=== PATIENT | female | born 1945 | race Asian ===

== ENCOUNTER 2018-07-23 07:29 | Emergency (ER) | payer OTHER ==
[2018-07-23] MEDS ORDERED: ACETAMINOPHEN 500 MG TAB ONE (08:09)
[2018-07-23] MEDS ORDERED: IBUPROFEN 400 MG TAB ONE (08:09)
--- NOTE | 2018-07-23 08:26 | EDPHYS ---
Physician Documentation [facility] Name: Marty Schneider Age: 73 yrs Sex: Female : 1945 Arrival Date: 07/23/2018 Time: 07:33 Bed 20 Private MD: Ryder Osman ED Physician Jj Hutchison HPI: 07/23 08:08 This 73 yrs old Female presents to ER via Wheelchair with complaints of Feet wa Swelling. 08:08 The patient presents with pain, that is acute. The complaints affect the right foot, wa bottom of right foot. Context: denies injury. states bottom of foot hurts to walk. . Onset: The symptoms/episode began/occurred 3 day(s) ago. Modifying factors: The symptoms are alleviated by nothing, the symptoms are aggravated by weight bearing. Associated signs and symptoms: The patient has no apparent associated signs or symptoms. Severity of symptoms: At their worst the symptoms were moderate, in the emergency department the symptoms are unchanged. The patient has experienced similar episodes in the past, h/o gout. states thus pain is different, however. The patient has not recently seen a physician. Historical: - Allergies: 08:01 Allopurinol; iw - Home Meds: 08:01 Azasite 1 % ophthalmic drop 1 drop once daily [Active]; atorvastatin 40 mg oral tab 1 iw tab once daily [Active]; Bactroban 2 % Topical oint 3 times per day [Active]; celecoxib 200 mg Oral cap 1 cap once daily [Active]; desoximetasone 0.25 % Topical oint three times a day [Active]; lisinopril 5 mg Oral tab 1 tab once daily [Active]; metformin 500 mg Oral tr24 1 tab once daily [Active]; metoprolol tartrate 25 mg Oral tab 1 tab once daily [Active]; omeprazole 20 mg Oral cpDR 1 cap once daily [Active]; optivar, 1 drop each eye twice daily PRN [Active]; Restasis 0.05 % ophthalmic dpet 1 drop every 12 hours [Active]; vitamin B complex oral cap daily [Active]; aspirin 81 mg Oral TbEC 1 tab once daily [Active]; Geritol Complete 16 mg iron- 0.38 mg oral tab daily [Active]; - PMHx: 08:01 Diabetes - NIDDM; High Cholesterol; Hypertension; iw - PSHx: 08:01 foot surgery; iw - Immunization history:: Adult Immunizations not up to date. - Social history:: Smoking status: Patient/guardian denies using tobacco. - Ebola Screening: : Patient negative for fever greater than or equal to 101.5 degrees Fahrenheit, and additional compatible Ebola Virus Disease symptoms Patient denies exposure to infectious person Patient denies travel to an Ebola-affected area in the 21 days before illness onset No symptoms or risks identified at this time. - Family history:: not pertinent. - Hospitalizations: : No recent hospitalization is reported. ROS: 08:19 MS/extremity: Positive for pain, tenderness, of the bottom of R foot., Negative for wa abrasion, contusion, deformity. 08:19 Constitutional: Negative for fever, chills, and weight loss, Eyes: Negative for injury, pain, redness, and discharge, ENT: Negative for injury, pain, and discharge, Neck: Negative for injury, pain, and swelling, Cardiovascular: Negative for chest pain, palpitations, and edema, Respiratory: Negative for shortness of breath, cough, wheezing, and pleuritic chest pain, Abdomen/GI: Negative for abdominal pain, nausea, vomiting, diarrhea, and constipation, Back: Negative for injury and pain, : Negative for injury, bleeding, discharge, and swelling, Skin: Negative for injury, rash, and discoloration, Neuro: Negative for headache, weakness, numbness, tingling, and seizure, Psych: Negative for depression, anxiety, suicide ideation, homicidal ideation, and hallucinations. 08:19 MS/extremity: Positive for pain, tenderness, of the plantar R foot. 08:19 All other systems are negative. Exam: 08:21 Constitutional: This is a well developed, well nourished patient who is awake, alert, wa and in no acute distress. Head/Face: Normocephalic, atraumatic. Eyes: Pupils equal round and reactive to light, extra-ocular motions intact. Lids and lashes normal. Conjunctiva and sclera are non-icteric and not injected. Cornea within normal limits. Periorbital areas with no swelling, redness, or edema. ENT: Nares patent. No nasal discharge, no septal abnormalities noted. Tympanic membranes are normal and external auditory canals are clear. Oropharynx with no redness, swelling, or masses, exudates, or evidence of obstruction, uvula midline. Mucous membranes moist. Neck: Trachea midline, no thyromegaly or masses palpated, and no cervical lymphadenopathy. Supple, full range of motion without nuchal rigidity, or vertebral point tenderness. No Meningismus. Cardiovascular: Regular rate and rhythm with a normal S1 and S2. No gallops, murmurs, or rubs. Normal PMI, no JVD. No pulse deficits. Respiratory: Lungs have equal breath sounds bilaterally, clear to auscultation and percussion. No rales, rhonchi or wheezes noted. No increased work of breathing, no retractions or nasal flaring. Abdomen/GI: Soft, non-tender, with normal bowel sounds. No distension or tympany. No guarding or rebound. No evidence of tenderness throughout. Back: No spinal tenderness. No costovertebral tenderness. Full range of motion. Skin: Warm, dry with normal turgor. Normal color with no rashes, no lesions, and no evidence of cellulitis. Neuro: Awake and alert, GCS 15, oriented to person, place, time, and situation. Cranial nerves II-XII grossly intact. Motor strength 5/5 in all extremities. Sensory grossly intact. Cerebellar exam normal. Normal gait. Psych: Awake, alert, with orientation to person, place and time. Behavior, mood, and affect are within normal limits. 08:21 Musculoskeletal/extremity: Extremities: grossly normal except: noted in the right foot: pain, tenderness, tenderness, tenderness to the plantar fascia. no increased warmth, no redness or swelling.. Vital Signs: 08:01 BP 154 / 75; Pulse 75; Resp 16 S; Temp 97.5(TE); Pulse Ox 99% on R/A; Weight 62.6 kg; iw Height 4 ft. 8 in. (142.24 cm); Pain 9/10; 08:01 Body Mass Index 30.94 (62.60 kg, 142.24 cm) iw MDM: 07:39 Patient medically screened. wa 08:24 Differential diagnosis: noted concern for plantar fasciitis. will d/c home with meds. wa will advise exercises and close f/u. Data reviewed: vital signs, nurses notes. Response to treatment: the patient's symptoms have mildly improved after treatment. Administered Medications: 08:00 Drug: Tylenol 1000 mg Route: PO; bp 08:46 Follow up: Response: Pain is decreased bp 08:00 Drug: Motrin 400 mg Route: PO; bp 08:47 Follow up: Response: Pain is decreased bp Disposition: 07/23/18 08:26 Discharged to Home. Impression: Acute R plantar fasciitis. - Condition is Stable. - Discharge Instructions: Plantar Fasciitis. - Prescriptions for Prednisone 20 mg Oral Tablet - take 2 tablets by ORAL route once daily for 3 days; 6 tablet. - Medication Reconciliation Form, Thank You Letter, Antibiotic Education, Prescription Opioid Use form. - Follow up: Neftali Ca MD; When: 2 - 3 days; Reason: Recheck today's complaints. - Problem is new. - Symptoms have improved. - Notes: take ibuprofen and tylenol for pain as discussed. do the stretching exercises as discussed to help witht he pain and improve symptoms. follow up with the bone doctor as prescribed Signatures: Sonia Cruz RN RN Jj Hutchison MD MD wa Peltier, Brian, RN RN bp Corrections: (The following items were deleted from the chart) 08:48 08:26 07/23/2018 08:26 Discharged to Home. Impression: Acute R plantar fasciitis. bp Condition is Stable. Forms are Medication Reconciliation Form, Thank You Letter, Antibiotic Education, Prescription Opioid Use. Follow up: Neftali Ca; When: 2 - 3 days; Reason: Recheck today's complaints. Problem is new. Symptoms have improved. [email or web address]
--- NOTE | 2018-07-23 08:26 | ER ---
Nurse's Notes [facility] Name: Marty Masters Age: 73 yrs Sex: Female : 1945 Arrival Date: 07/23/2018 Time: 07:33 Bed 20 Private MD: Ryder Osman Diagnosis: Acute R plantar fasciitis Presentation: 07/23 07:46 Presenting complaint:. iw 07:51 Presenting complaint: Patient states: hx of gout, pain to right ankle since Sunday. iw Transition of care: patient was not received from another setting of care. Onset of symptoms was July 21, 2018. Risk Assessment: Do you want to hurt yourself or someone else? Patient reports no desire to harm self or others. Initial Sepsis Screen: Does the patient meet any 2 criteria? No. Patient's initial sepsis screen is negative. Does the patient have a suspected source of infection? No. Patient's initial sepsis screen is negative. Care prior to arrival: None. 07:51 Method Of Arrival: Wheelchair iw 07:51 Acuity: ANEUDY 4 iw Historical: - Allergies: 08: Allopurinol; iw - Home Meds: 08: Azasite 1 % ophthalmic drop 1 drop once daily [Active]; atorvastatin 40 mg oral tab 1 iw tab once daily [Active]; Bactroban 2 % Topical oint 3 times per day [Active]; celecoxib 200 mg Oral cap 1 cap once daily [Active]; desoximetasone 0.25 % Topical oint three times a day [Active]; lisinopril 5 mg Oral tab 1 tab once daily [Active]; metformin 500 mg Oral tr24 1 tab once daily [Active]; metoprolol tartrate 25 mg Oral tab 1 tab once daily [Active]; omeprazole 20 mg Oral cpDR 1 cap once daily [Active]; optivar, 1 drop each eye twice daily PRN [Active]; Restasis 0.05 % ophthalmic dpet 1 drop every 12 hours [Active]; vitamin B complex oral cap daily [Active]; aspirin 81 mg Oral TbEC 1 tab once daily [Active]; Geritol Complete 16 mg iron- 0.38 mg oral tab daily [Active]; - PMHx: 08:01 Diabetes - NIDDM; High Cholesterol; Hypertension; iw - PSHx: 08:01 foot surgery; iw - Immunization history:: Adult Immunizations not up to date. - Social history:: Smoking status: Patient/guardian denies using tobacco. - Ebola Screening: : Patient negative for fever greater than or equal to 101.5 degrees Fahrenheit, and additional compatible Ebola Virus Disease symptoms Patient denies exposure to infectious person Patient denies travel to an Ebola-affected area in the 21 days before illness onset No symptoms or risks identified at this time. - Family history:: not pertinent. - Hospitalizations: : No recent hospitalization is reported. Screenin:00 Abuse screen: Denies threats or abuse. Denies injuries from another. Nutritional bp screening: No deficits noted. Tuberculosis screening: No symptoms or risk factors identified. Fall Risk None identified. Assessment: 08:00 General: Appears in no apparent distress. uncomfortable, obese, Behavior is calm, bp cooperative, appropriate for age. Pain: Complains of pain in right foot. Neuro: Level of Consciousness is awake, alert, obeys commands, Oriented to person, place, time, situation, Appropriate for age. Cardiovascular: No deficits noted. Respiratory: Airway is patent Respiratory effort is even, unlabored, Respiratory pattern is regular, symmetrical. GI: No signs and/or symptoms were reported involving the gastrointestinal system. : No signs and/or symptoms were reported regarding the genitourinary system. EENT: No deficits noted. Derm: No deficits noted. Musculoskeletal: Circulation, motion, and sensation intact. Range of motion: intact in all extremities, PAIN WITH RIGHT PLANTAR EXTENSION. 08:47 Reassessment: PT D/C HOME VIA W/C WITH FAMILY, DX WITH PLANTAR FASCIITIS. bp Vital Signs: 08:01 BP 154 / 75; Pulse 75; Resp 16 S; Temp 97.5(TE); Pulse Ox 99% on R/A; Weight 62.6 kg; iw Height 4 ft. 8 in. (142.24 cm); Pain 9/10; 08:01 Body Mass Index 30.94 (62.60 kg, 142.24 cm) iw ED Course: 07:33 Patient arrived in ED. mr 07:33 Ryder Osman DO is Private Physician. mr 07:39 Jj Hutchison MD is Attending Physician. wa 07:53 Triage completed. iw 07:56 Michelle Redding RN is Primary Nurse. jb1 08:00 Patient has correct armband on for positive identification. Bed in low position. Call bp light in reach. Side rails up X2. Adult w/ patient. 08:01 Arm band placed on. iw 08:25 Neftali Ca MD is Referral Physician. 08:47 No provider procedures requiring assistance completed. Patient did not have IV access bp during this emergency room visit. Administered Medications: 08:00 Drug: Tylenol 1000 mg Route: PO; bp 08:46 Follow up: Response: Pain is decreased bp 08:00 Drug: Motrin 400 mg Route: PO; bp 08:47 Follow up: Response: Pain is decreased bp Outcome: 08:26 Discharge ordered by . wa 08:47 Discharged to home via wheelchair, with family. bp 08:47 Condition: stable 08:47 Discharge instructions given to patient, Instructed on discharge instructions, follow up and referral plans. medication usage, Demonstrated understanding of instructions, follow-up care, medications, Prescriptions given X 1. 08:48 Patient left the ED. bp Signatures: Lang Rehman jb1 Alejandra Garza mr Sonia Cruz, JEREMIAS RN Jj Hutchison MD MD wa Peltier, Brian, RN RN bp
== END 2018-07-23 08:48 | disposition home or self-care (01) ==
LOC: ER 07:29
DX: M72.2 Plantar fascial fibromatosis (principal); I10 Essential (primary) hypertension; E78.00 Pure hypercholesterolemia, unspecified; E11.9 Type 2 diabetes mellitus without complications; Z79.82 Long term (current) use of aspirin; Z88.8 Allergy status to other drugs, medicaments and biological substances
CPT/HCPCS: 99283

== ENCOUNTER 2019-08-10 10:37 | Emergency (ER) | payer OTHER ==
--- OUTSIDE RECORDS SUMMARY | 2019-08-10 10:40 | XMS REPORT ---
:1945 Author Organization eClinicalWorks Care Team Providers Name Role Phone Jay Ousmane Provider Role Unavailable Allergies, Adverse Reactions, Alerts Substance Reaction Event Type Allopurinol Info Not Available Drug Allergy Problems Problem Type Condition Code Onset Dates Condition Status Problem Other technician terminal and repeater (current) drug Z79.899 Active therapy Problem Dry eye syndrome of bilateral H04.123 Active lacrimal glands Problem Encounter for other general Z00.8 Active examination Assessment Pain, joint, shoulder, right M25.511 Active Assessment Tear of right rotator cuff, M75.101 Active unspecified tear extent Problem Primary osteoarthritis involving 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 Problem Skin lesion of right arm L98.9 Active Problem 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 Active Problem Tear of right rotator cuff, M75.101 Active unspecified tear extent Problem Essential hypertension I10 Active Problem Mixed hyperlipidemia E78.2 Active Problem 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 Problem Skin lesion of left arm L98.9 Active Medications Medication Code Code Instructions Start End Status Dosage System Date Date Geritol Complete [facility] 30007201971 - Orally Sep 10, Active not defined 2017 Aspirin 81 [facility] 83255734637 81 MG Orally Sep 10, Active 1 tablet Once a day 2017 Lisinopril [facility] 24042714690 5 MG Orally Sep 10, Active 1 tablet Once a day 2017 Atorvastatin [facility] 55314388434 40 MG Orally b , Active 1 tablet Calcium Once a day 2018 AzaSite [facility] 69967224902 1 % Ophthalmic Sep 10, Active 1 drop into Once a day 2018 affected eye B-Complex/B-12 [facility] 47249460416 - Sublingual Sep 10, Active not defined 2017 Restasis ND 32660584049 0.05 % Sep 10, Active 1 drop into Ophthalmic 2018 affected eye Twice a day MetFORMIN HCl ER ND 88968654140 500 MG Orally Sep 10, Active 1 tablet with Once a day 2018 evening meal Omeprazole [facility] 84379501341 20 MG Orally b , Active 1 tablet Once a day 2017 Optivar ND 0 Active not defined Metoprolol [facility] 46225363609 50 MG Orally Sep 10, Active 1/2 tablet Tartrate Twice a day 2017 Desoximetasone [facility] 13062490239 0.25 % Sep 10, Active 1 application Externally TID 2017 to affected prn area Results No Known Results Summary Purpose eClinicalWorks Submission
--- OUTSIDE RECORDS SUMMARY | 2019-08-10 10:40 | XMS REPORT ---
:1945 Author Organization [employer] Care Team Providers Name Role Phone Ousmane Thompson Provider Role Unavailable Allergies, Adverse Reactions, Alerts Substance Reaction Event Type Allopurinol Info Not Available Drug Allergy Problems Problem Type Condition Code Onset Dates Condition Status Problem Other terminologist (current) drug Z79.899 Active therapy Problem Dry [...] Start End Status Dosage System Date Date Omeprazole ND 63560649711 20 MG Orally Sep 10, Active 1 tablet Once a day 2017 MetFORMIN HCl ND 30380220332 500 MG Orally Sep 10, Active 1 tablet with ER Once a day 2018 evening meal Optivar NDC 0 Active not defined Tramadol HCl ND 12116947364 50 MG Orally December 05, Active 1 tablet as every 6 hrs 2019 needed AzaSite ND 75746752537 1 % Ophthalmic Sep 10, Active 1 drop into Once a day 2018 affected eye Restasis ND 73190953573 0.05 % Sep 10, Active 1 drop into Ophthalmic 2018 affected eye Twice a day Lisinopril ND 66761273120 5 MG Orally Sep 10, Active 1 tablet Once a day 2018 Atorvastatin ND 01775532950 40 MG Orally Sep 10, Active 1 tablet Calcium Once a day 2018 Bactroban ND 46432432784 2 % Externally Active 1 application Three times a to affected day area Celecoxib ND 28953904331 200 MG Orally Active 1 capsule Once a day with food Colcrys [facility] 28788500756 0.6 MG Orally Aug Active 1 tablet Once a day 2018 Aspirin 81 [facility] 50123262277 81 MG Orally Sep 10, Active 1 tablet Once a day 2017 B-Complex/B-12 [facility] 34629650260 - Sublingual Sep 10, Active not defined 2017 Metoprolol [facility] 25224484328 50 MG Orally Sep 10, Active 1/2 tablet Tartrate Twice a day 2017 Geritol [facility] 03558594787 - Orally Sep 10, Active not defined Complete 2018 Results No Known Results Summary Purpose eClinicalWorks Submission
--- OUTSIDE RECORDS SUMMARY | 2019-08-10 10:40 | XMS REPORT ---
:1945 Author Organization [employer] Care Team Providers Name Role Phone Ousmane Thompson Provider Role Unavailable Allergies, Adverse Reactions, Alerts Substance Reaction Event Type Allopurinol Info Not Available Drug Allergy Problems Problem Type Condition Code Onset Dates Condition Status Assessment Pain, joint, shoulder, right M25.511 Active Problem Primary osteoarthritis involving 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 Assessment Tear of right rotator cuff, M75.101 Active unspecified tear extent Problem Type 2 diabetes mellitus without E11.9 Active complication, without long-term current use of insulin Problem Essential hypertension I10 Active Problem Tear of right rotator cuff, M75.101 Active unspecified tear extent Problem Encounter for other general Z00.8 Active examination Problem Other residential (current) drug Z79.899 Active therapy Problem Mixed hyperlipidemia E78.2 Active Problem Dry eye syndrome of bilateral H04.123 Active lacrimal glands Medications Medication Code Code Instructions Start End Status Dosage System Date Date Bactroban [facility] 83395832036 2 % topically Sep 10Aug Active 1 application as directed 2017, to affected 2019 area Atorvastatin ND 02900558643 40 MG Orally Sep 10, Active 1 tablet Calcium Once a day 2017 Optivar NDC 0 Active not defined Omeprazole ND 54915278376 20 MG Orally Sep 10, Active 1 tablet Once a day 2017 AzaSite ND 16937820880 1 % Ophthalmic Sep 10, Active 1 drop into Once a day 2018 affected eye Geritol Complete ND 76007307613 - Orally Sep 10, Active not defined 2018 Aspirin 81 ND 60135317663 81 MG Orally Sep 10, Active 1 tablet Once a day 2017 Lisinopril ND 27112473623 5 MG Orally b , Active 1 tablet Once a day 2018 MetFORMIN HCl ER ND 01464897433 500 MG Orally b , Active 1 tablet with Once a day 2018 evening meal Celecoxib ND 02887217447 200 MG Orally Sep 10, Aug Active 1 capsule Once a day 2017, with food 2018 Desoximetasone ND 22538416814 0.25 % Sep 10, Active 1 application Externally TID 2017 to affected prn area Metoprolol [facility] 35669527776 50 MG Orally Sep 10, Active 1/2 tablet Tartrate Twice a day 2017 Restasis ND 51752733907 0.05 % Sep 10, Active 1 drop into Ophthalmic 2018 affected eye Twice a day B-Complex/B-12 [facility] 71564378522 - Sublingual Sep 10, Active not defined 2017 Results Name Result Date Reference Range Unit Abnormality Flag MRI : Shoulder, right Summary Purpose eClinicalWorks Submission
--- OUTSIDE RECORDS SUMMARY | 2019-08-10 10:40 | XMS REPORT ---
:1945 Author Organization [employer]Works Care Team Providers Name Role Phone Jay Ousmane Provider Role Unavailable Allergies No Known Allergies Problems Problem Type Condition Code Onset Dates Condition Status Problem Primary osteoarthritis involving 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 Problem Type 2 diabetes mellitus without E11.9 Active complication, without long-term current use of insulin Problem Essential hypertension I10 Active Problem Tear of right rotator cuff, M75.101 Active unspecified tear extent Problem Encounter for other general Z00.8 Active examination Problem Other half-way (current) drug Z79.899 Active therapy Problem Mixed hyperlipidemia E78.2 Active Problem Dry eye syndrome of bilateral H04.123 Active lacrimal glands Medications No Known Medications Results No Known Results Summary Purpose eClinicalWorks Submission
--- OUTSIDE RECORDS SUMMARY | 2019-08-10 10:40 | XMS REPORT ---
:1945 Author Organization [employer] Care Team Providers Name Role Phone Ousmane Thompson Provider Role Unavailable Allergies No Known Allergies [...] other general Z00.8 Active examination Problem Other mcfp (current) drug Z79.899 Active therapy Problem Mixed hyperlipidemia E78.2 Active Problem Dry eye syndrome of bilateral H04.123 Active lacrimal glands Medications No Known Medications Results No Known Results Summary Purpose eClinicalWorks Submission
--- OUTSIDE RECORDS SUMMARY | 2019-08-10 10:40 | XMS REPORT ---
:1945 Author Organization [employer] Care Team Providers Name Role Phone Ousmane Thompson Provider Role Unavailable Allergies No Known Allergies Problems Problem Type Condition Code Onset Dates Condition Status Problem Other remote computer terminal operator (current) drug Z79.899 Active therapy Problem Dry eye syndrome of bilateral H04.123 Active lacrimal glands Problem Encounter for other general Z00.8 Active examination Problem Primary osteoarthritis involving M15.0 Active multiple [...] lesion of left arm L98.9 Active Medications No Known Medications Results No Known Results Summary Purpose eClinicalWorks Submission
--- OUTSIDE RECORDS SUMMARY | 2019-08-10 10:40 | XMS REPORT ---
:1945 Author Organization eClinicalWorks Care Team Providers Name Role Phone ThompsonOusmane Provider Role Unavailable Allergies, Adverse Reactions, Alerts Substance Reaction Event Type Allopurinol Info Not Available Drug Allergy Problems Problem Type Condition Code Onset Dates Condition Status Assessment Pain, joint, foot, right M25.571 Active Problem Primary osteoarthritis involving 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 Assessment Plantar fasciitis of right foot M72.2 Active Assessment Achilles tendinitis of right lower M76.61 Active extremity Problem Type 2 diabetes mellitus without E11.9 Active complication, without long-term current use of insulin Problem Essential hypertension I10 Active Problem Tear of right rotator cuff, M75.101 Active unspecified tear extent Problem Encounter for other general Z00.8 Active examination Problem Other claim benefit specialist (current) drug Z79.899 Active therapy Problem Mixed hyperlipidemia E78.2 Active Problem Dry eye syndrome of bilateral H04.123 Active lacrimal glands Medications Medication Code Code Instructions Start End Status Dosage System Date Date / [facility] 24250828506 - Sublingual Sep 10, Active not defined 2017 Metoprolol ND 92583872175 50 MG Orally Sep 10, Active 1/2 tablet Tartrate Twice a day 2017 Atorvastatin ND 58748114420 40 MG Orally Sep 10, Active 1 tablet Calcium Once a day 2017 Geritol Complete ND 25204313730 - Orally Sep 10, Active not defined 2017 Omeprazole ND 18335410495 20 MG Orally Sep 10, Active 1 tablet Once a day 2017 AzaSite ND 44239004814 1 % Ophthalmic Sep 10, Active 1 drop into Once a day 2017 affected eye Restasis ND 12470072470 0.05 % Sep 10, Active 1 drop into Ophthalmic 2018 affected eye Twice a day Bactroban ND 27622528441 2 % topically Sep 10Aug Active 1 application as directed 2017, to affected 2019 area Celecoxib ND 79978082499 200 MG Orally Sep 10, Aug Active 1 capsule Once a day 2017, with food 2018 Aspirin 81 [facility] 96568770677 81 MG Orally Sep 10, Active 1 tablet Once a day 2017 Lisinopril [facility] 41138498826 5 MG Orally Sep 10, Active 1 tablet Once a day 2017 Optivar NDC 0 Active not defined MetFORMIN HCl ER [facility] 55582221952 500 MG Orally Sep 10, Active 1 tablet with Once a day 2017 evening meal Desoximetasone [facility] 17811624470 0.25 % Sep 10, Active 1 application Externally TID 2017 to affected prn area Results No Known Results Summary Purpose eClinicalWorks Submission
--- OUTSIDE RECORDS SUMMARY | 2019-08-10 10:40 | XMS REPORT ---
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 Active Problem Tear of right rotator cuff, M75.101 Active unspecified tear extent Problem Essential hypertension I10 Active Problem Mixed hyperlipidemia E78.2 Active Problem 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 Problem Skin lesion of left arm L98.9 Active Assessment Other long-term (current) drug Z79.899 Active therapy Assessment Essential hypertension I10 Active Assessment 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 Active Assessment Encounter for other general Z00.8 Active examination Assessment 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 Problem Primary osteoarthritis involving 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 Medications Medication Code Code Instructions Start End Status Dosage System Date Date Metoprolol [facility] 42485666091 50 MG Orally Sep 10, Active 1/2 tablet Tartrate Twice a day 2017 Restasis [facility] 76902131391 0.05 % Sep 10, Active 1 drop into Ophthalmic 2018 affected eye Twice a day Lisinopril [facility] 01313952082 5 MG Orally Sep 10, Active 1 tablet Once a day 2018 Geritol Complete ND 63125436487 - Orally Sep 10, Active not defined 2018 Celecoxib ND 75631919681 200 MG Orally Active 1 capsule Once a day with food MetFORMIN HCl ER ND 97846846205 500 MG Orally Sep 10, Active 1 tablet with Once a day 2018 evening meal AzaSite ND 97508310236 1 % Ophthalmic Sep 10, Active 1 drop into Once a day 2018 affected eye B-Complex/B-12 [facility] 70299383400 - Sublingual Sep 10, Active not defined 2017 Atorvastatin [facility] 55599885476 40 MG Orally Sep 10, Active 1 tablet Calcium Once a day 2017 Aspirin 81 [facility] 98238304506 81 MG Orally Sep 10, Active 1 tablet Once a day 2017 Desoximetasone [facility] 16346686597 0.25 % Sep 10November Active 1 application Externally TID 2018 03, to affected prn 2018 area Optivar NDC 0 Active not defined Omeprazole [facility] 01751294436 20 MG Orally Sep 10, Active 1 tablet Once a day 2017 Bactroban [facility] 80375723009 2 % Externally Active 1 application Three times a to affected day area Colcrys [facility] 91818821372 0.6 MG Orally Mar 11, Active 1 tablet Once a day 2018 Results Name Result Date Reference Range Unit Abnormality Flag Hemoglobin A1C ----Hemoglobin A1c 7.0 20180912 4.2-6.3 % H TSH Thyroid Stimulating Hormone ----Thyroid Stimulating 1.440 20180912 0.360-3.740 [iU]/L Hormone Comprehensive Metabolic Panel ----Albumin 3.7 20180912 3.4-5.0 g/dL ----Protein, Total 7.1 20180912 6.4-8.2 g/dL ----Albumin/Globulin Ratio 1.1 20180912 1.1-1.8 ----Globulin 3.4 20180912 2.3-3.5 g/dL ----AST/SGOT 45 20180912 15-37 U/L H ----Glomerular Filtration 72 20180912 =/>90 mL L Rate ----Creatinine 0.78 20180912 0.55-1.3 mg/dL ----BUN Blood Urea Nitrogen 21 20180912 7-18 mg/dL H ----Glucose Level 100 79047518 74-106 mg/dL ----Alkaline Phosphatase 65 20180912 45-117 U/L ----ALT/SGPT 44 20180912 12-78 U/L ----Calcium Level 9.3 20180912 8.5-10.1 mg/dL ----Bilirubin Total 0.4 20180912 0.2-1.0 mg/dL ----Sodium Level 142 20180912 136-145 mmol/L ----Potassium 4.3 20180912 3.5-5.1 mmol/L ----Chloride Level 106 20180912 98-107 mmol/L ----Bicarbonate 30 20180912 21-32 mmol/L Uric Acid ----Uric Acid 8.3 20180912 2.6-6.0 mg/dL H Summary Purpose eClinicalWorks Submission
--- OUTSIDE RECORDS SUMMARY | 2019-08-10 10:41 | XMS REPORT ---
:1945 Author Organization eClinicalWorks Care Team Providers Name Role Phone Jay Ousmane Provider Role Unavailable Allergies, Adverse Reactions, Alerts Substance Reaction Event Type Allopurinol Info Not Available Drug Allergy Problems Problem Type Condition Code Onset Dates Condition Status Problem Other roasterman (current) drug Z79.899 Active therapy Problem Dry [...] Start End Status Dosage System Date Date MetFORMIN HCl [facility] 58195544680 500 MG Orally Sep 10, Active 1 tablet with ER Once a day 2017 evening meal Geritol ND 31595347624 - Orally Sep 10, Active not defined Complete 2017 Optivar NDC 0 Active not defined Colcrys [facility] 67651131987 0.6 MG Orally Aug Active 1 tablet Once a day 2018 Tramadol HCl [facility] 18754338079 50 MG Orally Active 1 tablet as every 6 hrs needed B-Complex/B-12 ND 29494603982 - Sublingual Sep 10, Active not defined 2017 Aspirin 81 [facility] 57671430379 81 MG Orally Sep 10, Active 1 tablet Once a day 2017 Lisinopril [facility] 00634123420 5 MG Orally Sep 10, Active 1 tablet Once a day 2017 Celecoxib ND 28204231998 200 MG Orally Active 1 capsule Once a day with food Omeprazole ND 45285625159 20 MG Orally Sep 10, Active 1 tablet Once a day 2017 Bactroban [facility] 17283342555 2 % Externally Active 1 application Three times a to affected day area Metoprolol [facility] 58692667671 50 MG Orally Sep 10, Active 1/2 tablet Tartrate Twice a day 2017 AzaSite [facility] 81057530357 1 % Ophthalmic Sep 10, Active 1 drop into Once a day 2017 affected eye Restasis [facility] 81052773742 0.05 % Sep 10, Active 1 drop into Ophthalmic 2018 affected eye Twice a day Atorvastatin [facility] 65509893502 40 MG Orally Sep 10, Active 1 tablet Calcium Once a day 2017 Results No Known Results Summary Purpose eClinicalWorks Submission
--- OUTSIDE RECORDS SUMMARY | 2019-08-10 10:41 | XMS REPORT ---
:1945 Author Organization eClinicalWorks Care Team Providers Name Role Phone Ryder Osman Provider Role Unavailable Allergies, Adverse Reactions, Alerts Substance Reaction Event Type Allopurinol Info Not Available Drug Allergy Problems Problem Type Condition Code Onset Dates Condition Status Problem Other penitentiary (current) drug Z79.899 Active therapy Problem Dry [...] lesion of left arm L98.9 Active Assessment Essential hypertension I10 Active Assessment Type 2 diabetes mellitus without E11.9 Active complication, without long-term current use of insulin Assessment Other intermediate frame tender (current) drug Z79.899 Active therapy Problem Primary osteoarthritis involving 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 Medications Medication Code Code Instructions Start End Status Dosage System Date Date Restasis [facility] 50718715613 0.05 % Sep 10, Active 1 drop into Ophthalmic 2018 affected eye Twice a day Bactroban ND 27445653338 2 % Externally Active 1 application Three times a to affected day as needed area B-Complex/B-12 ND 13726970440 - Sublingual Sep 10, Active not defined 2018 Atorvastatin ND 94243355628 40 MG Orally Sep 10, Active 1 tablet Calcium Once a day 2018 MetFORMIN HCl ER ND 20908233473 500 MG Orally Sep 10, Active 1 tablet with Once a day 2018 evening meal Celecoxib ND 12617291855 200 MG Orally Active 1 capsule Once a day with food Desoximetasone ND 75134580941 0.25 % Sep 10, Active 1 application Externally TID 2017 to affected prn area Omeprazole ND 82858435653 20 mg Orally Sep 10, Active 1 capsule Once a day 2017 AzaSite NDC 21129067661 1 % Ophthalmic Sep 10, Active 1 drop into Once a day 2017 affected eye Aspirin 81 ND 45580482075 81 MG Orally Sep 10, Active 1 tablet Once a day 2017 Geritol Complete ND 23781972177 - Orally Sep 10, Active not defined 2017 Optivar ND 0 Active not defined Tramadol HCl ND 34227635833 50 MG Orally Active 1 tablet as every 6 hrs needed Lisinopril ND 30439269617 5 MG Orally Sep 10, Active 1 tablet Once a day 2017 Colcrys ND 59192173536 0.6 MG Orally Active 1 tablet Once a day Metoprolol ND 65938477614 50 MG Orally Sep 10, Active 1/2 tablet Tartrate Twice a day 2017 Results Name Result Date Reference Range Unit Abnormality Flag Basic Metabolic Panel (8) (BMP) ----Chloride 101 15938471 96-106 mmol/L ----Potassium 5.1 24409104 3.5-5.2 mmol/L ----Sodium 142 74823882 134-144 mmol/L ----BUN/Creatinine Ratio 17 90720831 12-28 ----eGFR If Africn Am 80 93707925 >59 mL/min/1.73 ----Calcium 10.0 46905854 8.7-10.3 mg/dL ----Glucose 114 76397582 65-99 mg/dL H ----Carbon Dioxide, 26 86125478 20-29 mmol/L Total ----BUN 14 16078567 8-27 mg/dL ----Creatinine 0.83 17426294 0.57-1.00 mg/dL ----eGFR If NonAfricn Am 69 06393214 >59 mL/min/1.73 Hemoglobin A1c ----Hemoglobin A1c 6.5 58256763 4.8-5.6 % H Summary Purpose eClinicalWorks Submission
[2019-08-10] MEDS ORDERED: HYDROCODONE/APAP 5/325 MG TAB ONE (11:28)
[2019-08-10 12:03] LABS: Absolute Lymphocytes (CBC) 1.3 K/uL (0.7-4.9); Basophils % 0.8 % (0-1.3); Hematocrit 38.6 % (36.0-45.0); Lymphocytes % 18.6 % (15.3-44.8); MPV 8.2 fL (7.6-11.3); RBC Red Blood Cell Count 4.11 M/uL (3.86-4.86)
[2019-08-10 12:18] LABS: Potassium 4.8 mmol/L (3.5-5.1); Uric Acid 8.4 mg/dL (2.6-6.0)
--- NOTE | 2019-08-10 13:21 | ER ---
Nurse's Notes [facility] Asim Name: Marty Masters Age: 74 yrs Sex: Female : 1945 Arrival Date: 08/10/2019 Time: 10:40 Bed 17 Private MD: Diagnosis: Gout-left foot and ankle, left elbow and left hand Presentation: 08/10 11:02 Presenting complaint: Patient states: "L elbow pain started New Year's dionte. Appointment ca1 with doctor on Sunday but I couldn't take the pain anymore". Minimal swelling noted, warm to touch, NO redness noted, limited ROM on affected area. Denies hitting anything on L elbow, did not lift anything heavy. Tylenol Extra strength taken today at 0930am. Transition of care: patient was not received from another setting of care. Onset of symptoms was August 10, 2019. Risk Assessment: Do you want to hurt yourself or someone else? Patient reports no desire to harm self or others. Initial Sepsis Screen: Does the patient meet any 2 criteria? No. Patient's initial sepsis screen is negative. Does the patient have a suspected source of infection? No. Patient's initial sepsis screen is negative. Care prior to arrival: None. 11:02 Method Of Arrival: Wheelchair ca1 11:02 Acuity: ANEUDY 4 ca1 Triage Assessment: 11:18 General: Appears in no apparent distress. comfortable, Behavior is cooperative, bp appropriate for age, anxious. Pain: Complains of pain in left foot and left arm. EENT: No deficits noted. Neuro: No deficits noted. Cardiovascular: No deficits noted. Respiratory: No deficits noted. GI: No signs and/or symptoms were reported involving the gastrointestinal system. : No signs and/or symptoms were reported regarding the genitourinary system. Derm: No deficits noted. Musculoskeletal: No deficits noted. Historical: - Allergies: 11:21 Allopurinol; bp - Home Meds: 11:21 Zetia 10 mg Oral tab 1 tab once daily [Active]; lisinopril 5 mg Oral tab 1 tab once bp daily [Active]; aspirin 81 mg Oral TbEC 1 tab once daily [Active]; atorvastatin 40 mg Oral tab 1 tab once daily [Active]; Azasite 1 % ophthalmic drop 1 drop once daily [Active]; Bactroban 2 % Topical oint 3 times per day [Active]; celecoxib 200 mg Oral cap 1 cap once daily [Active]; desoximetasone 0.25 % Topical oint three times a day [Active]; Geritol Complete 16 mg iron- 0.38 mg Oral tab daily [Active]; Lipitor 10 mg Oral tab 1 tab once daily [Active]; metformin 500 mg Oral Tb24 1 tab once daily [Active]; metformin 500 mg Oral tr24 1 tab once daily [Active]; metoprolol tartrate 25 mg Oral tab 1 tab once daily [Active]; omeprazole 20 mg Oral cpDR 1 cap once daily [Active]; optivar, 1 drop each eye twice daily PRN [Active]; Restasis 0.05 % ophthalmic dpet 1 drop every 12 hours [Active]; Toprol XL 25 mg Oral Tb24 1 tab once daily [Active]; vitamin B complex Oral cap daily [Active]; - PMHx: 11:21 Gout; Diabetes - NIDDM; High Cholesterol; Hypertension; bp - Immunization history:: Adult Immunizations unknown. - Social history:: Smoking status: Patient/guardian denies using tobacco. - Ebola Screening: : No symptoms or risks identified at this time. Screenin:22 Abuse screen: Denies threats or abuse. Denies injuries from another. Nutritional bp screening: No deficits noted. Tuberculosis screening: No symptoms or risk factors identified. Fall Risk None identified. Assessment: 11:22 General: SEE TRIAGE NOTE. bp 13:00 Reassessment: ALL CURRENT ORDERS COMPLETED, DISPO PENDING. bp 14:05 Reassessment: PT D/C HOME AMBULATORY WITH FAMILY, DX WITH GOUT. bp Vital Signs: 11:02 BP 131 / 69; Pulse 86; Resp 17 S; Temp 98.1(O); Pulse Ox 94% on R/A; Weight 62.14 kg ca1 (R); Height 4 ft. 8 in. (142.24 cm) (R); Pain 6/10; 12:11 BP 96 / 59; Pulse 71; Resp 16; Pulse Ox 100% ; bp 11:02 Body Mass Index 30.71 (62.14 kg, 142.24 cm) ca1 ED Course: 10:40 Patient arrived in ED. mr 10:50 Santiago Ramirez, JEREMIAS is Primary Nurse. bp 10:51 Jonathan Mullen NP is PHCP. pm1 10:51 Juan Fernández MD is Attending Physician. pm1 10:53 PHCP role handed off by Jonathan Mullen NP pm1 10:53 Johnson Chan PA is PHCP. pm1 10:53 PHCP role handed off by Johnson Chan PA pm1 10:53 Jonathan Mullen NP is PHCP. pm1 11:02 Arm band placed on right wrist. ca1 11:05 Triage completed. ca1 11:22 Patient has correct armband on for positive identification. Bed in low position. Call bp light in reach. Side rails up X2. Adult w/ patient. 14:06 No provider procedures requiring assistance completed. IV discontinued, intact, bp bleeding controlled, No redness/swelling at site. Pressure dressing applied. Administered Medications: 11:30 Drug: [place] 5 mg-325 mg 1 tabs Route: PO; bp 12:12 Follow up: Response: Pain is decreased bp 13:21 Not Given (Physician Discretion): predniSONE 60 mg PO once pm1 14:00 Drug: predniSONE 60 mg Route: PO; bp 14:05 Follow up: Response: No adverse reaction bp Outcome: 13:20 Discharge ordered by . pm1 14:06 Discharged to home ambulatory, with family. bp 14:06 Condition: stable 14:06 Discharge instructions given to patient, Instructed on discharge instructions, follow up and referral plans. medication usage, Demonstrated understanding of instructions, follow-up care, medications, Prescriptions given X 3. 14:07 Patient left the ED. bp Signatures: Alejandra Garza Jonathan Mullen NP LEGAL TECHNICIAN pm1 Santiago Ramirez RN RN bp Gissel Infante RN RN ca1
--- NOTE | 2019-08-10 13:22 | EDPHYS ---
Physician Documentation [facility] Name: Marty Masters Age: 74 yrs Sex: Female : 1945 Arrival Date: 08/10/2019 Time: 10:40 Bed 17 Private MD: Juan Licona HPI: 08/10 11:36 This 74 yrs old Female presents to ER via Wheelchair with complaints of Left pm1 Elbow Pain. 11:36 The patient or guardian complains of pain. The complaints affect the left elbow. pm1 Context: The problem was sustained at home, resulted from Believes that it is a gout flare up. Onset: The symptoms/episode began/occurred 08/05/2019. Treatment prior to arrival includes: over the counter medications, Tylenol. Modifying factors: The symptoms are alleviated by nothing. the symptoms are aggravated by movement, touching. Associated signs and symptoms: Pertinent positives: pain, swelling, Pertinent negatives: fever. The patient has experienced similar episodes in the past, a few times, and the symptoms today are exactly the same, to previous Gout flare up. The patient has not recently seen a physician, has an appointment scheduled, with Dr Thompson on Sunday. Patient with pain to left elbow, left great toe, left ankle and second left finger joint onset at 08/05/2019. Patient with history of gout and symptoms are the same as prior flare up. Patient currently taking colchicine for treatment. Historical: - Allergies: 11:21 Allopurinol; bp - Home Meds: 11:21 Zetia 10 mg Oral tab 1 tab once daily [Active]; lisinopril 5 mg Oral tab 1 tab once bp daily [Active]; aspirin 81 mg Oral TbEC 1 tab once daily [Active]; atorvastatin 40 mg Oral tab 1 tab once daily [Active]; Azasite 1 % ophthalmic drop 1 drop once daily [Active]; Bactroban 2 % Topical oint 3 times per day [Active]; celecoxib 200 mg Oral cap 1 cap once daily [Active]; desoximetasone 0.25 % Topical oint three times a day [Active]; Geritol Complete 16 mg iron- 0.38 mg Oral tab daily [Active]; Lipitor 10 mg Oral tab 1 tab once daily [Active]; metformin 500 mg Oral Tb24 1 tab once daily [Active]; metformin 500 mg Oral tr24 1 tab once daily [Active]; metoprolol tartrate 25 mg Oral tab 1 tab once daily [Active]; omeprazole 20 mg Oral cpDR 1 cap once daily [Active]; optivar, 1 drop each eye twice daily PRN [Active]; Restasis 0.05 % ophthalmic dpet 1 drop every 12 hours [Active]; Toprol XL 25 mg Oral Tb24 1 tab once daily [Active]; vitamin B complex Oral cap daily [Active]; - PMHx: 11:21 Gout; Diabetes - NIDDM; High Cholesterol; Hypertension; bp - Immunization history:: Adult Immunizations unknown. - Social history:: Smoking status: Patient/guardian denies using tobacco. - Ebola Screening: : No symptoms or risks identified at this time. ROS: 11:36 Constitutional: Negative for fever, chills, and weight loss. pm1 11:36 Cardiovascular: Negative for chest pain, palpitations, and edema, Respiratory: Negative for shortness of breath, cough, wheezing, and pleuritic chest pain, Abdomen/GI: Negative for abdominal pain, nausea, vomiting, diarrhea, and constipation, Back: Negative for injury and pain, Skin: Negative for injury, rash, and discoloration, Neuro: Negative for headache, weakness, numbness, tingling, and seizure. 11:36 MS/extremity: Positive for pain, swelling, of the left ankle and left first toe, left second finger PIP, Negative for injury or acute deformity. 11:36 All other systems are negative. Exam: 11:36 Constitutional: This is a well developed, well nourished patient who is awake, alert, pm1 and in no acute distress. Head/Face: Normocephalic, atraumatic. Neck: Trachea midline, no thyromegaly or masses palpated, and no cervical lymphadenopathy. Supple, full range of motion without nuchal rigidity, or vertebral point tenderness. No Meningismus. Chest/axilla: Normal chest wall appearance and motion. Nontender with no deformity. No lesions are appreciated. Cardiovascular: Regular rate and rhythm with a normal S1 and S2. No gallops, murmurs, or rubs. Normal PMI, no JVD. No pulse deficits. Respiratory: Lungs have equal breath sounds bilaterally, clear to auscultation and percussion. No rales, rhonchi or wheezes noted. No increased work of breathing, no retractions or nasal flaring. Abdomen/GI: Soft, non-tender, with normal bowel sounds. No distension or tympany. No guarding or rebound. No evidence of tenderness throughout. Back: No spinal tenderness. No costovertebral tenderness. Full range of motion. Skin: Warm, dry with normal turgor. Normal color with no rashes, no lesions, and no evidence of cellulitis. 11:36 Neuro: Orientation: is normal, Motor: is normal, moves all fours, strength is normal, strength is 5/5 in all extremities. Vital Signs: 11:02 BP 131 / 69; Pulse 86; Resp 17 S; Temp 98.1(O); Pulse Ox 94% on R/A; Weight 62.14 kg ca1 (R); Height 4 ft. 8 in. (142.24 cm) (R); Pain 6/10; 12:11 BP 96 / 59; Pulse 71; Resp 16; Pulse Ox 100% ; bp 11:02 Body Mass Index 30.71 (62.14 kg, 142.24 cm) ca1 MDM: 11:07 Patient medically screened. [facility] [place] 13:10 Data reviewed: vital signs. Data interpreted: Pulse oximetry: on room air is 100 %. pm1 Interpretation: normal. Counseling: I had a detailed discussion with the patient and/or guardian regarding: the historical points, exam findings, and any diagnostic results supporting the discharge/admit diagnosis, lab results, the need for outpatient follow up, a family practitioner, a orthopedic surgeon, to return to the emergency department if symptoms worsen or persist or if there are any questions or concerns that arise at home. 08/10 11:32 Order name: CBC with Diff; Complete Time: 12:19 pm1 08/10 11:32 Order name: BMP; Complete Time: 12:19 pm1 08/10 11:32 Order name: Uric Acid; Complete Time: 12:19 pm1 Administered Medications: 11:30 Drug: [place] 5 mg-325 mg 1 tabs Route: PO; bp 12:12 Follow up: Response: Pain is decreased bp 13:21 Not Given (Physician Discretion): predniSONE 60 mg PO once pm1 14:00 Drug: predniSONE 60 mg Route: PO; bp 14:05 Follow up: Response: No adverse reaction bp Disposition: 08/11 07:29 Co-signature as Attending Physician, Juan Fernández MD I agree with the assessment and [facility] [place] plan of care. Disposition: 08/10/19 13:20 Discharged to Home. Impression: Gout - left foot and ankle, left elbow and left hand. - Condition is Stable. - Discharge Instructions: Gout. - Prescriptions for Medrol ([place]ison) 4 mg Oral Tablets, Dose Pack - take 1 tablet by ORAL route as directed - follow package instructions; 1 packet. Tylenol- Codeine #3 300-30 mg Oral Tablet - take 2 tablets by ORAL route every 6 hours As needed; 20 tablet. - Medication Reconciliation Form, Thank You Letter, Antibiotic Education, Prescription Opioid Use form. - Follow up: Emergency Department; When: As needed; Reason: Worsening of condition. Follow up: Private Physician; When: 2 - 3 days; Reason: Recheck today's complaints, Continuance of care, Re-evaluation by your physician. - Problem is new. - Symptoms have improved. Signatures: Dispatcher [employer] [facility] Juan Fernández MD MD cha Marinas, Patrick, MANAGER OF DEVELOPMENT MANAGER OF DEVELOPMENT pm1 Santiago Ramirez, RN RN bp Corrections: (The following items were deleted from the chart) 08/10 14:07 13:20 08/10/2019 13:20 Discharged to Home. Impression: Gout - left foot and ankle, left bp elbow and left hand. Condition is Stable. Forms are Medication Reconciliation Form, Thank You Letter, Antibiotic Education, Prescription Opioid Use. Follow up: Emergency Department; When: As needed; Reason: Worsening of condition. Follow up: Private Physician; When: 2 - 3 days; Reason: Recheck today's complaints, Continuance of care, Re-evaluation by your physician. Problem is new. Symptoms have improved. pm1
[2019-08-10] MEDS ORDERED: predniSONE 20 MG TAB ONE (14:00)
[2019-08-10 14:28] VITALS: TEMP 98.1
[2019-08-10 14:29] VITALS: BP 96/59; O2SAT 100
== END 2019-08-10 14:07 | disposition home or self-care (01) ==
LOC: ER 10:37
DX: M10.9 Gout, unspecified (principal); I10 Essential (primary) hypertension; E11.9 Type 2 diabetes mellitus without complications; E78.00 Pure hypercholesterolemia, unspecified; Z79.82 Long term (current) use of aspirin; Z88.8 Allergy status to other drugs, medicaments and biological substances
CPT/HCPCS: 36415; 80048; 84550; 85025; 99283; J7512